=== PATIENT | male | born 1960 | race Caucasian/White ===

== ENCOUNTER → 2019-04-29 | Outpatient (CLI) | payer SELFPAY | END | disposition home or self-care (01) | LOC: RESCLI 13:45 → LAB 13:45 | DX: R21 Rash and other nonspecific skin eruption (principal); R05 Cough; R13.10 Dysphagia, unspecified; R49.0 Dysphonia; Z76.89 Persons encountering health services in other specified circumstances ==

== ENCOUNTER → 2020-01-21 | Outpatient (CLI) | payer OTHER | END | disposition home or self-care (01) | LOC: RESCLI 01:11 | PROVIDERS: ATTEND Emergency Medicine | DX: I63.40 Cerebral infarction due to embolism of unspecified cerebral artery (principal); E78.5 Hyperlipidemia, unspecified; E11.9 Type 2 diabetes mellitus without complications; I10 Essential (primary) hypertension; Z87.898 Personal history of other specified conditions; Z79.82 Long term (current) use of aspirin; Z79.899 Other long term (current) drug therapy; Z88.0 Allergy status to penicillin ==